=== PATIENT | male | born 1995 | race Caucasian/White ===

== ENCOUNTER 2019-08-12 14:34 | Emergency (ER) | payer SELFPAY ==
[2019-08-12] MEDS ORDERED: DIPH,PERTUSS(ACELL),TET VAC/PF 0.5 ML DISP.SYRIN IM ONE ×2 (14:42→14:59)
--- NOTE | 2019-08-12 15:05 | Diagnostic Imaging Report ---
PATIENT MR#: [id number] PATIENT PATIENT NAME: KEITH TORREZ DATE OF : 1995 REFERRING PHYSICIAN: Zechariah Mijares EXAM DATE: 08/12/2019 ACCESSION NUMBER: [id number] EXAM DESCRIPTION: FOREARM 2 VIEWS Exam: Left forearm. History: Foreign body. AP and lateral view of the left forearm are submitted. A nail foreign body is noted in the lateral soft tissues to the distal radius. The head of this nail is in very close proximity to the radial metaphysis however no gross fracture is detected on this study. Impression: Foreign body in very close proximity to the distal radial metaphysis. exclusion of a distal radial fracture may only be made once the nail has been removed. Read by: Dr. Tavon Garzon Transcribed by: Transcribed Date: Electronically signed by: Dr. Tavon Garzon Date signed: 08/12/2019 3:04:48 PM
--- NOTE | 2019-08-12 15:18 | ED Physician Documentation ---
General Adult - HISTORIAN Historian: patient - HPI Stated Complaint: FB left arm Chief Complaint: General Adult Onset: minutes Timing: still present Severity: mild Further Comments: yes (Pt is a 24 yo male with a foreign body, a 1.25 inch nail, in his L forearm. Pt was using a nailgun when he accidentally shot the nail into his forearm. Nail is not of the sort that is coated with glue. Tetanus is not utd.) - ROS CONST: no problems EYES/ENT: none CVS/RESP: none GI/: none MS/SKIN/LYMPH: other (foreign body, nail, in L forearm) - PAST HX Past History: none Allergies/Adverse Reactions: Allergies Allergy/AdvReac Type Severity Reaction Status Date / Time No Known Allergies Allergy Verified 08/12/19 14:38 - SOCIAL HX Smoking History: cigarettes - FAMILY HX Family History: No - VITAL SIGNS Vital Signs: Vital Signs Temp Pulse Resp BP Pulse Ox 98.7 F 83 17 123/77 99 08/12/19 14:34 08/12/19 14:34 08/12/19 14:34 08/12/19 14:34 08/12/19 14:34 - REVIEWED ASSESSMENTS Nursing Assessment Reviewed: Yes Vitals Reviewed: Yes Progress - Progress Progress: X-ray L forearm: A nail foreign body is noted in the lateral soft tissues to the distal radius. The head of this nail is in very close proximity to the radial metaphysis however no gross fracture is detected on this study. Impression: Foreign body in very close proximity to the distal radial metaphysis. exclusion of a distal radial fracture may only be made once the nail has been removed. X-ray L forearm, post FB removal: There is a small defect in the cortex of the bone along the radial aspect of the distal radius which may relate to foreign body removal. Otherwise, no additional osseous abnormality. Tdap 0.5 ml IM Wound soaked in Hibiclens landon'n d/c instructions: Rx Ciprofloxacin 500 mg. Take one every 12 hours for 7 days. 1st dose in ER. Return to ER if you develop signs of infection such as increased soreness, redness, warmth of skin or if you have concerns. ED Results Lab/Radiology - Orders Orders: ED Orders Category Date Time Status FOREARM 2 VIEWS [RAD] Stat Exams 08/12/19 Completed FOREARM 2 VIEWS [RAD] Stat Exams 08/12/19 Ordered Diph,Pertuss(Acell),Tet Vac/Pf [Adacel] Med 08/12/19 14:42 Discontinued 0.5 ml IM .ONCE ONE Diph,Pertuss(Acell),Tet Vac/Pf [Adacel] Med 08/12/19 14:59 Discontinued 0.5 ml IM .STK-MED ONE General Adult Physical Exam - PHYSICAL EXAM GENERAL APPEARANCE: mild distress NECK: normal inspection, supple RESPIRATORY: no resp distress, chest non-tender, breath sounds normal CVS: reg rate & rhythm, heart sounds normal BACK: normal inspection SKIN: other (foreign body, nail, through clothing into L forearm near wrist) EXTREMITIES: normal range of motion (post fb removal), other (foreign body, nail, through clothing into L forearm near wrist) NEURO: oriented X3, motor nml, sensation nml Discharge Clincal Impression: foreign body, nail, L forearm (removed), chip fracture L forearm Referrals: Primary Doctor,No [Primary Care Provider] - Condition: Stable Disposition: 01 HOME, SELF-CARE Decision to Admit: NO Decision Time: 16:00
--- NOTE | 2019-08-12 15:30 | Diagnostic Imaging Report ---
PATIENT MR#: [id number] PATIENT PATIENT NAME: KEITH TORREZ DATE OF : 1995 REFERRING PHYSICIAN: Zechariah Mijares EXAM DATE: 08/12/2019 ACCESSION NUMBER: [id number] EXAM DESCRIPTION: FOREARM 2 VIEWS Left forearm History: Foreign body removal AP and lateral projections of the left forearm were obtained which demonstrate a small defect in the bone radially at the distal radius. No osseous abnormalities are noted elsewhere. No radiodense foreign body is note d within the soft tissues. Impression: There is a small defect in the cortex of the bone along the radial aspect of the distal radius which may relate to foreign body removal. Otherwise, no additional osseous abnormality. Read by: Dr. Daisy Montes Transcribed by: Transcribed Date: Electronically signed by: Dr. Daisy Montes Date signed: 08/12/2019 3:29:53 PM
[2019-08-12 15:57] VITALS: BP 122/74
== END 2019-08-12 15:55 | disposition home or self-care (01) ==
LOC: ED 14:34
DX: S52.92XA Unspecified fracture of left forearm, initial encounter for closed fracture (principal); S60.459A Superficial foreign body of unspecified finger, initial encounter; W29.4XXA Contact with nail gun, initial encounter
CPT/HCPCS: 73090; 90471; 90715; 99283; 99284